=== PATIENT | male | born 1945 | race Caucasian/White ===

== ENCOUNTER 2018-04-20 12:14 | Emergency (ER) | payer MEDICARE, OTHER ==
[~2018-04-20] VITALS: Ht 182.9 cm; Wt 102.3 kg
[~2018-04-20 12:14] MED LIST: ASPIRIN81 MG PO; ATIVAN0.5 MG PO; ATROPINE SUL1 %; BACLOFEN10 MG PO; CARB/LEVO1 TA5 PO; CEFDINIR300 MG PO; COLACE100 MG PO; CORDARONE/200 MG/TAB PO; DIGOXIN0.125 MG PO; ELIQUIS5 MG PO; LANOXIN0.25 MG PO; LASIX 20 MG20 MG/TAB PO; LORAZEPAM0.5 MG PO; LYRICA25 MG PO; MAGNESIUM500 M3; NAPROXEN375 MG PO; PLAVIX75 MG PO; SERTRALINE25 MG PO; SPIRONOLACT25 MG PO; VITAMIN B-121000 MC3; VITAMIN D3400 UNIT PO; XARELTO10 MG PO; ZOFRAN ODT4 MG PO; [UNRECOGNIZED DRUG - OTHER] PO
[2018-04-20 13:01] LABS: HEMATOCRIT 38.1 % (39.0-50.0); HEMOGLOBIN 12.2 g/dl (14.0-18.0); IMMATURE GRANULOCYTES 2.1 % (0.0-1.0); MEAN CORPUSCULAR HGB 30.4 pG CALC (26.0-32.0); NEUT# 10.39 thou/uL (1.82-7.42); RED BLOOD COUNT 4.01 mill/uL (4.70-6.10)
[2018-04-20 13:20] LABS: ALBUMIN 3.9 g/dL (3.2-5.0); ALKALINE PHOSPHATASE 165 u/l (38-126); ANION GAP 13 (6-22 (CALC)); BILIRUBIN, TOTAL 0.7 mg/dL (0.0-1.4); BUN 17 mg/dL (8-23); BUN/CREATININE RATIO 22 (12-20 (CALC)); CARBON DIOXIDE 29 mmol/l (22-30); CHLORIDE 95 mmol/l (95-108); CREATININE 0.8 mg/dL (0.7-1.3); GFR > 60 ML/MIN (>=60 (CALC)); GFR FOR AFR.AMER. > 60 ML/MIN (>=60 (CALC)); LIPASE 40 u/l (23-300); POTASSIUM 4.9 mmol/l (3.5-5.1); SGOT/AST 23 u/l (19-48); SGPT/ALT 28 u/l (11-66); SODIUM 133 mmol/l (137-146)
[2018-04-20 13:26] LABS: TOTAL PROTEIN 8.1 g/dL (6.3-8.2)
[2018-04-20 15:22] LABS: URINE BILIRUBIN - DIPSTICK NEGATIVE (NEGATIVE); URINE BLOOD DIPSTICK LARGE (NEGATIVE); URINE COLOR YELLOW; URINE GLUCOSE - DIPSTICK NEGATIVE (NEGATIVE); URINE KETONE TRACE mg/dL (NEGATIVE); URINE NITRITE - DIPSTICK NEGATIVE (Negative); URINE PROTEIN - DIPSTICK 30 mg/dL (NEG-TRACE); URINE SPECIFIC GRAVITY 1.025
[2018-04-20 15:23] LABS: URINE CLARITY CLOUDY; URINE LEUK ESTERASE MODERATE (NEGATIVE)
[2018-04-20 15:32] LABS: URINE RBC TNTC RBC/hpf (0-5); URINE SQUAMOUS EPITHELIAL CELL FEW EPI/hpf (0-FEW); URINE WBC 20-50 WBC/hpf (0-5)
[2018-04-20 15:33] LABS: URINE AMORPH SEDIMENT MANY hpf (NONE-FER); URINE BACTERIA FEW hpf
[2018-04-20 18:12] VITALS: BP 56/37
== END 2018-04-20 18:12 | disposition expired ==
LOC: ED 12:14
PROVIDERS: Family Medicine
PROC: 0BH17EZ Insertion of Endotracheal Airway into Trachea, Via Natural or Artificial Opening (ICD-10-PCS; principal; 2018-04-20)
DX: I46.9 Cardiac arrest, cause unspecified (principal); I25.2 Old myocardial infarction; I48.91 Unspecified atrial fibrillation; Z86.73 Personal history of transient ischemic attack (TIA), and cerebral infarction without residual deficits; I95.9 Hypotension, unspecified; R06.02 Shortness of breath
CPT/HCPCS: J0282; J0692